=== PATIENT | male | born 1985 | race Caucasian/White ===

== ENCOUNTER 2024-04-20 15:29 | Emergency (ER) | payer BC ==
[2024-04-20] MEDS ORDERED: CEFAZOLIN 2 GM VIAL ONE (15:48)
[2024-04-20] MEDS ORDERED: Sodium Chloride 0.9% 100 ML ONE (15:48)
[2024-04-20] MEDS ORDERED: Ondansetron PF 4 MG/2 ML Vial ONE (15:48)
[2024-04-20] MEDS ORDERED: Acetaminophen 500 MG TAB ONE (15:48)
[2024-04-20] MEDS ORDERED: Ketorolac Tromethamine 30 MG (1 mL) VIAL ONE (15:48)
[2024-04-20] MEDS ORDERED: Boostrix 0.5 ML (Tdap) VIAL (>/=7 yrs of age) ONE (15:54)
[2024-04-20] MEDS ORDERED: Morphine 4 MG/ML VIAL ONE ×2 (15:54→16:39)
[2024-04-20] MEDS ORDERED: Bacitracin Zinc Ointment 30 gm TUBE TOP SCH (16:00)
[2024-04-20] MEDS ORDERED: HYDROcodone/Acetaminophen 5/325 mg Tablet ONE (16:39)
[2024-04-20] MEDS ORDERED: Ketamine In 0.9 % NaCl 50 MG/5 ML SYRINGE ONE (16:40)
== END 2024-04-20 17:54 | disposition home or self-care (01) ==
LOC: ERS 15:29
DX: T24.201A Burn of second degree of unspecified site of right lower limb, except ankle and foot, initial encounter (principal); T23.221A Burn of second degree of single right finger (nail) except thumb, initial encounter; T24.222A Burn of second degree of left knee, initial encounter; I10 Essential (primary) hypertension; W40.8XXA Explosion of other specified explosive materials, initial encounter; Z87.891 Personal history of nicotine dependence
CPT/HCPCS: 90715; 96374; 96375; 96376; J1885; J2272; J2405; J3490